=== PATIENT | male | born 2000 | race Caucasian/White ===

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

== ENCOUNTER 2022-08-20 08:14 | Outpatient (CLI) | payer BC | END 2022-08-20 08:15 | disposition home or self-care (01) | LOC: TBSIIMAG 08:14 | PROVIDERS: ATTEND Specialist | DX: M54.12 Radiculopathy, cervical region (principal) | CPT/HCPCS: 72141 ==